=== PATIENT | female | born 1985 | race Caucasian/White ===

== ENCOUNTER → 2023-01-26 10:57 | Outpatient (BNVA) | payer MEDICAID, SELFPAY | PROVIDERS: Family Provider Nurse Practitioner Family; PCP Nurse Practitioner Family; Visit Provider Nurse Practitioner Family | DX: R73.9 Hyperglycemia, unspecified (principal); F43.10 Post-traumatic stress disorder, unspecified; G47.00 Insomnia, unspecified; R63.8 Other symptoms and signs concerning food and fluid intake | CPT/HCPCS: 80053; 83036; 85025 ==

== ENCOUNTER 2023-02-15 12:16 | Emergency (ER) | payer MEDICAID, SELFPAY ==
--- NOTE | 2023-02-15 12:40 | ECG_ITS ---
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 Measurements Intervals [place] Rate: 96 P: 76 [place]: 144 QRS: 75 QRSD: 102 T: 24 QT: 326 QTc: 413 Interpretive Statements SINUS RHYTHM POSSIBLE LEFT ATRIAL ENLARGEMENT [-0.1mV P-WAVE IN V1/V2] NONSPECIFIC T-WAVE ABNORMALITY Compared to ECG 02/21/2018 14:09:48 T-wave abnormality now present Sinus arrhythmia no longer present Electronically Signed On 02-15-2023 20:26:37 CDT by Armand Ariza M.D. [id number]
[2023-02-15 12:42] VITALS: BP 105/70; PULSE 93; RESP 16; TEMP 36.5; O2SAT 96; BMI 25.4
--- NOTE | 2023-02-15 13:22 | XRR_ITS ---
PROCEDURE INFORMATION: Exam: XR Chest Exam date and time: 02/15/2023 1:26 PM Age: 37 years old Clinical indication: Cough and dyspnea; Additional info: Dyspnea/cough TECHNIQUE: Imaging protocol: Radiologic exam of the chest. Views: 1 view. COMPARISON: DX XR chest 1V portable [id number] 02/13/2023 7:00 PM FINDINGS: Lungs: Unremarkable. No consolidation. Pleural spaces: Unremarkable. No pleural effusion. No pneumothorax. Heart/Mediastinum: Unremarkable. No cardiomegaly. Bones/joints: Unremarkable. XR/XR chest 1V portable [id number] IMPRESSION: No acute findings.
--- NOTE | 2023-02-15 13:28 | ED_ITS ---
HPI - Arrhythmia/Palpitations General: Chief Complaint: Arrhythmia/Palpitations Stated Complaint: irregular heartbeat, sob Time Seen by Provider: 02/15/23 13:22 Source: patient Mode of arrival: ambulatory History of Present Illness: 37-year-old female presents emergency room with complaints of what she calls pausing in her heart rhythm. She has previously had a cardiac ablation for SVT several years ago. She noted any problems since then she was on phentermine and still on her medicine list below she stated she stopped taking it. She states that time she will get runs of the sensation of skipped heartbeats. Is not been sustained while she was in the emergency room. No fever sweats chills no chest pain or shortness of breath at this time. She states at times when she gets her runs of irregular heartbeat that she will feel short of breath and feels some chest discomfort. She was seen at 2 other local ERs with no significant findings ([facility] in [place]) complaint: skipped beats and palpitations Onset (ago): week(s) Duration: intermittent Severity: mild Arrhythmia history: SVT and history of ablation Associated symptoms: Reports anxiety, nausea, sense of impending doom and short of breath; Deny cough, diaphoresis, muscle cramps, paresthesias, pre-syncope, syncope or vomiting Review of Systems Const: Denies: fever(s), chills or diaphoresis ENMT: Denies: throat pain, ear or mastoid pain, nasal discharge or nasal congestion Card: Reports: chest pain, palpitations and irregular heart rhythm; Denies: edema, swelling of feet/ankles, syncope or pre-syncope Resp: Denies: dyspnea, productive cough or non-productive cough GI: Reports: nausea; Denies: abdominal pain or vomiting : Denies: flank pain, difficulty voiding, dysuria, urinary frequency or urinary urgency Musc: Denies: muscle cramps Skin/Breast: Denies: rash or pruritus Psych: Reports: anxiety PFSH ED PFSH: Medical History (Updated 02/15/23 @ 14:49 by Bryan Correa DO) History of paroxysmal supraventricular tachycardia PTSD (post-traumatic stress disorder) Surgical History (Updated 02/15/23 @ 13:32 by Bryan Correa DO) History of cardiac radiofrequency ablation Physical Exam Const: GENERAL APPEARANCE: cooperative and comfortable ORIENTATION/CONSCIOUSNESS: Yes awake, Yes oriented to person, Yes oriented to place and Yes oriented to time HENMT: COMMON NORMALS: normocephalic, atraumatic and hearing grossly normal bilaterally HEAD & SCALP: normocephalic and atraumatic Resp: COMMON NORMALS: normal respiratory effort, No retractions, No use of accessory muscles and clear to auscultation bilaterally AUSCULTATION: clear to auscultation bilaterally Cardio: COMMON NORMALS: regular rate, regular rhythm and No murmurs present (Cardio) RATE: regular rate RHYTHM: regular rhythm GI: COMMON NORMALS: Soft to palpation and No hepatosplenomegaly present AUSCULTATION: Yes normoactive bowel sounds PALPATION: Yes Soft to palpation, No Tenderness to palpation present (GI), No Guarding due to palpation present (GI) and Yes No hepatosplenomegaly present Extremity: COMMON NORMALS: normal to inspection, capillary refill normal, no clubbing, cyanosis or edema, no calf tenderness and no pedal edema Neuro: SENSORIUM/ORIENTATION: Yes oriented to person, Yes oriented to place an d Yes oriented to time Skin: COMMON NORMALS: no rashes or lesions noted GENERAL SKIN EXAM: no rashes or lesions noted Course Vital Signs: Vital signs: Vital Signs Temperature 97.7 F 02/15/23 12:42 Pulse Rate 84 02/15/23 15:37 Respiratory Rate 16 02/15/23 15:37 Blood Pressure 103/75 02/15/23 15:37 Pulse Oximetry 99 02/15/23 15:37 Oxygen Delivery Me thod Room Air 02/15/23 13:40 MDM - Arrhythmia/Palpitations Medical Decision Making While I was at the bedside during history and exam patient reported she felt the pauses. What she is experiencing on the monitor is PVCs with compensatory pause. They are intermittent did not appear sequential. During the course of the visit patient did have a few episodes where she had bigeminy that would last for 5-6 beats her heart rate on the monitor would go to 40 and then rebound back into the 80s. We tried to reproduce with standing at the bedside and on unable to. Reviewed with the patient that she is having PVCs these are generally thought to be benign would not recommend treatment of these at this time. There is no evidence of SVT at this time. We will discharge her home with a 48-hour Holter monitor and follow-up with cardiology. She has phentermine on her medication list states she has not been taking recently advised her to continue to stay off of this medication for now. Avoid stress excessive tiredness caffeine alcohol and nicotine as well as any stimulating energy drinks. Return if has any change in symptoms. Medical Records I reviewed the patient's medical records. Lab Data I reviewed the patient's lab results. 02/15/23 13:33 02/15/23 13:33 Radiology Impressions Chest X-Ray 02/15/23 13:22 IMPRESSION: No acute findings. Laboratory Results WBC 6.0 10^3/uL (4.0-10.0) 02/15/23 13:33 RBC 4.28 10^6/uL (4.1-5.3) 02/15/23 13:33 Hgb 13.5 g/dL (11.5-15.3) 02/15/23 13:33 Hct 40.6 % (37.0-47.0) 02/15/23 13:33 MCV 94.9 fl (81-99) 02/15/23 13:33 MCH 31.5 pg (28.0-34.0) 02/15/23 13:33 MCHC 33.3 g/dL (30.0-36.0) 02/15/23 13:33 RDW 11.8 % (12.1-15.1) L 02/15/23 13:33 Plt Count 234 10^3/cmm (130-400) 02/15/23 13:33 MPV 9.3 fL (7.4-10.4) 02/15/23 13:33 Neut % (Auto) 64.5 % 02/15/23 13:33 Lymph % (Auto) 22.2 % 02/15/23 13:33 [place] % (Auto) 9.9 % 02/15/23 13:33 Eos % (Auto) 2.2 % 02/15/23 13:33 Baso % (Auto) 1.0 % 02/15/23 13:33 Neut # (Auto) 3.90 10^3/uL (1.8-7.7) 02/15/23 13:33 Lymph # (Auto) 1.3 10^3/uL (0.8-4.8) 02/15/23 13:33 [place] # (Auto) 0.6 10^3/uL (0.2-0.9) 02/15/23 13:33 Eos # (Auto) 0.1 10^3/uL (0.0-0.8) 02/15/23 13:33 Baso # (Auto) 0.1 10^3/uL (0.0-0.1) 02/15/23 13:33 Nucleated RBC % (auto) 0 % 02/15/23 13:33 Nucleated RBCs # 0.0 /100WBC 02/15/23 13:33 Sodium 139 mmol/L (136-145) 02/15/23 13:33 Potassium 4.3 mmol/L (3.5-5.1) 02/15/23 13:33 Chloride 106 mmol/L (98-107) 02/15/23 13:33 Carbon Dioxide 22 mmol/L (22-29) 02/15/23 13:33 Anion Gap 15.3 (5-19) 02/15/23 13:33 BUN 13 mg/dL (6-20) 02/15/23 13:33 Creatinine 1.0 mg/dL (0.5-0.9) H 02/15/23 13:33 GFR Calculation 62.1 mL/min (90-130) L 02/15/23 13:33 Glucose 86 mg/dL (65-115) 02/15/23 13:33 Calculated Osmolality 287 mOsm/kg (285-295) 02/15/23 13:33 Calcium 9.2 mg/dL (8.5-10.5) 02/15/23 13:33 Total Bilirubin 0.7 mg/dL (0.15-1.2) 02/15/23 13:33 AST 16 U/L (0-32) 02/15/23 13:33 ALT 13 U/L (0-33) 02/15/23 13:33 Alkaline Phosphatase 64 U/L (35-105) 02/15/23 13:33 Total Protein 6.9 g/dL (6.6-8.7) 02/15/23 13:33 Albumin 4.3 g/dL (3.5-5.2) 02/15/23 13:33 Globulin 2.6 g/dL (1.3-4.6) 02/15/23 13:33 TSH 1.42 uIU/mL (0.27-4.20) 02/15/23 13:33 Discharge Plan Discharge Patient Disposition: Home Clinical Impression: Palpitations Condition: Stable Prescriptions: No Action multivitamin Tablet 1 tab PO QAM bupropion HCl 150 mg tablet sustained-release 12 hr 150 mg PO BEDTIME trazodone 50 mg tablet 50 mg PO BEDTIME Rx Instructions: take 30 minutes prior to sleep phentermine 37.5 mg capsule 18.75 - 37.5 mg PO DAILY Rx Instructions: (pt states stop taking 02/13/23) must take 30 minutes before breakfast Discharge Orders: Discharge ED (Routine); Ordered 02/15/23 Ordered By: Bryan Correa Referrals: Abran Zheng FNP [Primary Care Provider] - Discharge Diet: Usual diet Discharge Activity: Resume usual activity Patient Instructions: Opioid Safety, Pain Management Activity Restrictions/Additional Instructions: You were seen today for palpitations. Your monitor strip showed PVCs with what is called a compensatory pause as the heart muscle resets itself before beating normally again. These are generally considered very benign. I would recommend that you do not take the phentermine. Avoid alcohol and nicotine highly caffeinated products and energy drinks avoid dehydration and make sure you maintain enough sleep as all of these things can trigger more PVCs. player manager will make arrangements for you to have a 48-hour Holter monitor and follow-up with cardiology. Coding Level of Care Code ED Rice Drier Operator for Joe Rubio
[2023-02-15 13:40] VITALS: BP 112/77; PULSE 76; RESP 18; O2SAT 100
[2023-02-15 13:44] LABS: Basophils # 0.1 10^3/uL (0.0-0.1); Eosinophils # 0.1 10^3/uL (0.0-0.8); Eosinophils % 2.2 %; Hematocrit 40.6 % (37.0-47.0); Hemoglobin 13.5 g/dL (11.5-15.3); Lymphocytes # 1.3 10^3/uL (0.8-4.8); Lymphocytes % 22.2 %; Mean Corpuscular HGB Conc 33.3 g/dL (30.0-36.0); Mean Corpuscular Hemoglobin 31.5 pg (28.0-34.0); Mean Corpuscular Volume 94.9 fl (81-99); Mean Platelet Volume 9.3 fL (7.4-10.4); Monocytes # 0.6 10^3/uL (0.2-0.9); Monocytes % 9.9 %; Neutrophils % 64.5 %; Nucleated Red Blood Cells % 0 %; Platelet Count 234 10^3/cmm (130-400); Red Blood Count 4.28 10^6/uL (4.1-5.3); Red Cell Distribution Width 11.8 % (12.1-15.1)
--- NOTE | 2023-02-15 13:50 | PC.PHAR ---
PT STATES SHE TAKES CARE OF HER OWN MEDICATIONS-PT STATES SHE STOP TAKING PHENTERMINE 18.75MG TO 37.5MG TABS ON Tuesday02/14/23 EXT SHOWS FILLED 01/26/23 30D/S-PT STATES SHE IS TAKING BUPROPION SR 150MG AT BEDTIME RX FILLED 02/01/23 60D/S 150MG DAILY FOR 3 DAYS THEN INCREASE TO 150MG BID PT STATES THE DR IS GOING TO DC THIS MEDICATION AND HAS HER ONLY TAKING 150MG HS-NOTES ARE MADE IN THE PHARMACY COMMENTS
[2023-02-15 14:01] LABS: Albumin Level 4.3 g/dL (3.5-5.2); Alkaline Phosphatase 64 U/L (35-105); Anion Gap 15.3 (5-19); Aspartate Amino Transferase 16 U/L (0-32); Blood Urea Nitrogen 13 mg/dL (6-20); Calcium 9.2 mg/dL (8.5-10.5); Carbon Dioxide 22 mmol/L (22-29); Chloride 106 mmol/L (98-107); Globulin 2.6 g/dL (1.3-4.6); Glomerular Filtration Rate 62.1 mL/min (90-130); Glucose 86 mg/dL (65-115); Osmolality Calculated 287 mOsm/kg (285-295); Potassium 4.3 mmol/L (3.5-5.1); Sodium 139 mmol/L (136-145); Total Bilirubin 0.7 mg/dL (0.15-1.2); Total Protein 6.9 g/dL (6.6-8.7)
[2023-02-15 14:30] LABS: Alanine Aminotransferase 13 U/L (0-33); Thyroid Stimulating Hormone 1.42 uIU/mL (0.27-4.20)
[2023-02-15 14:38] VITALS: BP 107/75; PULSE 77; O2SAT 100
[2023-02-15 15:37] VITALS: BP 103/75; PULSE 84; RESP 16; O2SAT 99
--- NOTE | 2023-02-16 09:00 | DCPLANNER ---
Addendum entered by Vivien Madden 03/18/23 11:08: Patient did attend appointment scheduled with heart care Addendum entered by Vivien Madden 03/03/23 10:30: Appointment for 48 hour halter monitor was cancelled Addendum entered by Vivien Madden 02/23/23 09:17: Patient has a follow up appointment scheduled for Tuesday, March 02, 2023 at 11:30 at [facility] for a 48 hour halter monitor. Patient has a follow up appointment scheduled for Thursday, March 09, 2023 at 11:[address] Resendez at [facility]. Original Note: Case steven had message to schedule a follow up appointment for patient with cardiology. executive sales manager sent patients information to the front office staff a heart care. Patients information will be printed and reviewed. clinic will call patient with appointment information. executive sales manager also had message to schedule an outpatient halter monitor. executive sales manager faxed signed order to heart care, who will call patient with appointment information.
== END 2023-02-15 15:38 | disposition home or self-care (01) ==
PROVIDERS: Emergency Provider Family Medicine; Family Provider Nurse Practitioner Family; PCP Nurse Practitioner Family
DX: R00.2 Palpitations (principal)
CPT/HCPCS: 71045; 80053; 84443; 85025; 93005; 99285

== ENCOUNTER → 2023-03-14 11:51 | Outpatient (BNVA) | payer MEDICAID, SELFPAY | PROVIDERS: Family Provider Nurse Practitioner Family; PCP Nurse Practitioner Family; Visit Provider Internal Medicine Cardiovascular Disease | DX: R00.2 Palpitations (principal) | CPT/HCPCS: 93005 ==

== ENCOUNTER 2023-03-29 13:19 | Outpatient (CLI) | payer MEDICAID, SELFPAY ==
--- NOTE | 2023-03-29 13:30 | USCV_ITS ---
Veronica Perkins Age: 37 Gender: F : 1985 Exam Date: 03/29/2023 13:52 Ordering Phys: Norma Resendez MD ([email or web address]) Technologist: CT Exam Location: [facility] [place] Indication: Palpitations, Frequent PVC's BP: 130 / 86 HR: 77 Rhythm: Sinus Technical Quality: Adequate MEASUREMENTS (Male / Female) Normal Values 2D ECHO LV Chamber Size 4.6 cm RV Chamber Size 2.8 cm LVOT Diameter 2.1 cm LV Ejection Fraction MOD 2C 48.9 % LV Ejection Fraction 2C AL 49.6 % LA Diameter 2.5 cm LA Width 2.8 cm LA Height 3.6 cm RA Width 3.0 cm RA Height 3.0 cm Aorta at Sinotubular Diameter 2.4 cm IVC Diameter 1.2 cm M-MODE Aortic Annulus Diameter 2.6 cm LA Ao Ratio MM 1.1 MV E Point Septal Separation 0.7 cm DOPPLER AV Peak Velocity 134.0 cm/s LVOT Peak Velocity 105.0 cm/s AV Area Cont Eq vti 3.2 cm squared AV Area Cont Eq pk 2.6 cm squared MV Peak Velocity 71.0 cm/s MV Area PHT 3.1 cm squared Mitral E to A Ratio 1.1 MV E' Velocity 39.0 cm/s Mitral E to MV E' Ratio 5.6 Mitral E to LV E' Lateral Ratio 6.3 Mitral E to LV E' Septal Ratio 5.0 TR Peak Velocity 99.0 cm/s TR Peak Gradient 3.9 mmHg TV Peak E Velocity 88.0 cm/s Right Atrial Pressure 3.0 mmHg Pulmonary Artery Systolic Pressu 6.9 mmHg PV Peak Velocity 97.0 cm/s FINDINGS Left Ventricle Normal left ventricular size, systolic function and wall thickness, with no regional wall motion abnormalities. Left ventricular ejection fraction is estimated at 70-75 %. Normal diastolic function. Right Ventricle Normal right ventricular size and systolic function. RVSP could not be calculated due to incomplete tricuspid regurgitation velocity profile. Right Atrium Normal right atrial size. Left Atrium Normal left atrial size. Mitral Valve Structurally normal mitral valve. No mitral valve stenosis. Trace mitral valve regurgitation. Aortic Valve Structurally normal trileaflet aortic valve. No aortic valve stenosis. No aortic valve regurgitation. Tricuspid Valve Structurally normal tricuspid valve. No tricuspid valve stenosis. Trace tricuspid valve regurgitation. Pulmonic Valve Structurally normal pulmonic valve. No pulmonary valve stenosis. Trace pulmonary valve regurgitation. Pericardium No pericardial effusion. Aorta Normal size aortic root and proximal ascending aorta. IVC Normal IVC dimension with >50% respiratory change of the inferior vena cava. CONCLUSIONS 1. Normal left ventricular size, systolic function and wall thickness, with no regional wall motion abnormalities. Left ventricular ejection fraction is estimated at 70-75 %. Normal diastolic function. 2. No significant valvular abnormality. 3. No prior similar studies to compare. Norma Resendez MD (Electronically Signed) Final Date: 31 March 2023 13:02 S
== END 2023-03-29 13:20 | disposition home or self-care (01) ==
LOC: RAD 13:24
PROVIDERS: PCP Nurse Practitioner Family; Visit Provider Internal Medicine Cardiovascular Disease
DX: R06.02 Shortness of breath (principal); R55 Syncope and collapse; Z98.890 Other specified postprocedural states
CPT/HCPCS: 93306

== ENCOUNTER 2023-10-10 10:22 | Emergency (ER) | payer SELFPAY ==
--- NOTE | 2023-10-10 10:25 | XRR_ITS ---
PROCEDURE INFORMATION: Exam: XR Chest Exam date and time: 10/10/2023 10:43 AM Age: 37 years old Clinical indication: Pain; Chest pressure; Additional info: Chest pain TECHNIQUE: Imaging protocol: Radiologic exam of the chest. Views: 1 view. COMPARISON: CR XR chest 1V portable [id number] 02/15/2023 1:26 PM FINDINGS: Lungs: Unremarkable. No consolidation. Pleural spaces: Unremarkable. No pleural effusion. No pneumothorax. Heart/Mediastinum: Unremarkable. No cardiomegaly. Bones/joints: Unremarkable. XR/XR chest 1V portable [id number] IMPRESSION: No acute findings.
--- NOTE | 2023-10-10 10:26 | ECG_ITS ---
[facility] Test Date: 2023-10-10 Pat Name: Veronica Perkins Department: Room: Gender: Female [employer]er: : 1985 Requested By: Yazmin Armendariz Order Number: [id number] [place] MD: Jose Antonio Reyes M.D. Measurements Intervals [place] Rate: 66 P: 64 [place]: 154 QRS: 63 QRSD: 84 T: 48 QT: 380 QTc: 400 Interpretive Statements SINUS RHYTHM POSSIBLE LEFT ATRIAL ENLARGEMENT [-0.1mV P-WAVE IN V1/V2] LOW QRS VOLTAGE IN PRECORDIAL LEADS [QRS DEFLECTION < 1.0 mV IN CHEST LEADS] NONSPECIFIC T-WAVE ABNORMALITY Compared to ECG 02/15/2023 12:40:59 Low QRS voltage now present T-wave abnormality still present Electronically Signed On 10-10-2023 11:25:32 CDT by Jose Antonio Reyes M.D. [id number]
--- NOTE | 2023-10-10 10:26 | W.ED.CHESTPA ---
Documented by User: TE Kraus 10/10/23 13:23 HPI - Chest Pain General: Chief Complaint: Chest Pain Stated Complaint: CHEST PAIN Time Seen by Provider: 10/10/23 10:25 Source: patient and EMS Mode of arrival: EMS Limitations: no limitations History of Present Illness: Patient is a 37 year old female who presents to ED today via EMS for chest pain and palpitations. Patient states over the past year or so she has been having cardiac pauses . Patient tells me at times she feels like the pauses are happening 100 times in a row . Patient tells me she has underwent Holter monitoring and was also on a monitor for close to a month. She tells me that everybody seems to be focusing on her not having SVT . She reportedly has a history of this 18 years ago and underwent cardiac ablation for this. Patient has been started on a beta-benigno for PVCs but does not feel like this is helping much. She states when her heart pauses she feels nauseous and feels like she needs to vomit also feels like she is going to pass out and feels tired. MD complaint: other (palpitations ) Pertinent past history: other (SVT with cardio ablation) Onset (ago): year(s) Timing of current episode: episodic Prior episodes: Yes Pain radiation: none Severity: moderate Relieving factors: nothing Exacerbating factors: nothing Associated symptoms: Reports palpitations; Deny abdominal pain, dyspnea, fever(s), nausea, syncope or vomiting Treatment prior to arrival: none Risk Factors: Coronary artery disease risk factors: none Thoracic aortic dissection risk factors: none Related Data: On Oral Contraceptives: No Review of Systems Const: Denies: fever(s) or chills Eyes: Denies: change in vision or blurry vision Card: Reports: chest pain and palpitations; Denies: irregular heart rhythm, edema, swelling of feet/ankles, lightheadedness, syncope, pre-syncope, dyspnea on exertion, orthopnea, leg pain with exertion or acrocyanosis Resp: Denies: dyspnea, productive cough or pain on inspiration GI: Denies: abdominal pain, nausea, vomiting, heartburn or diarrhea : Denies: dysuria Musc: Denies: neck pain, back pain, extremity pain, extremity swelling or joint pain Skin/Breast: Denies: rash Neuro: Denies: headache(s), numbness in extremities, weakness in extremities, sensory changes or dizziness PFS ED PFSH: Medical History History of paroxysmal supraventricular tachycardia PTSD (post-traumatic stress disorder) Surgical History S/P hysterectomy H/O hand surgery S/P breast augmentation History of cardiac radiofrequency ablation Social History Smoking and tobacco/nicotine status: current some day tobacco/nicotine user Alcohol intake: current Alcohol intake frequency: few times a month Substance/Drug Use: never Physical Exam Const: COMMON NORMALS: no acute distress, average body habitus, patient oriented x3, no limitations, healthy appearing, alert and well nourished ORIENTATION/CONSCIOUSNESS: Yes awake, Yes oriented to person, Yes oriented to place and Yes oriented to time HENMT: COMMON NORMALS: normocephalic and atraumatic HEAD & SCALP: normal to inspection, normocephalic and atraumatic Neck/C-Spine: COMMON NORMALS: full ROM, no lymphadenopathy, supple and no meningeal signs Chest: COMMONS NORMALS: normal inspection of the chest Resp: COMMON NORMALS: normal respiratory effort and clear to auscultation bilaterally AUSCULTATION: clear to auscultation bilaterally Cardio: COMMON NORMALS: regular rate and regular rhythm RATE: regular rate RHYTHM: regular rhythm GI: COMMON NORMALS: Normal to inspection, nondistended, normoactive bowel sounds present, Soft to palpation, non-tender, No hepatosplenomegaly present and no masses PALPATION: Yes Soft to palpation and Yes No hepatosplenomegaly present : COMMON NORMALS: Yes no CVA tenderness BLADDER/KIDNEY EXAM: Yes no CVA tenderness Back/Pelvis: COMMON NORMALS: no CVA tenderness and thoracic and lumbar spine normal to inspection Extremity: COMMON NORMALS: normal to inspection GENERAL: Yes normal exam except as noted Neuro: LIONEL COMA SCALE: document GCS findings [place] coma scale eye opening: Spontaneous [place] coma scale verbal response: Orientated [place] coma scale motor response: Obey commands Lionel coma scale total score: 15 COMMON NORMALS: patient oriented x3 SENSORIUM/ORIENTATION: Yes alert, Yes oriented to person, Yes oriented to place and Yes oriented to time MENINGEAL SIGNS: Yes no meningeal signs Skin: COMMON NORMALS: no rashes or lesions noted GENERAL SKIN EXAM: no rashes or lesions noted Course Vital Signs: Vital signs: Vital Signs Temperature 98.2 F 10/10/23 10:29 Pulse Rate 98 10/10/23 12:50 Respiratory Rate 14 10/10/23 10:29 Blood Pressure 110/68 10/10/23 10:29 Pulse Oximetry 96 10/10/23 12:50 Oxygen Delivery Me thod Room Air 10/10/23 12:50 MDM - Chest Pain Medical Decision Making Patient is a 37-year-old female here for palpitations/feeling like her heart is pausing. She was here approximately 3 hours COVID visualized one PVC on the monitor. Holter monitor from [facility] was reviewed. Test date 09/2022. Impression was sinus rhythm with premature ventricular contractions noted accounting for 2.1% of total beats. 2-week monitoring following this showed 400 triggered events the vast majority of these are related to PVCs. Patient has had a normal echocardiogram in March 2023. Patient feels like symptoms are worsening. I did discuss with Dr. Ariza who stated we can get patient set up for repeat Holter monitoring and follow-up with cardiology following this. Return to ED precautions given. Patient reviewed with Dr. Correa who agrees with plan. Medical Records I reviewed the patient's medical records. Lab Data I reviewed the patient's lab results. 10/10/23 09:52 10/10/23 09:52 Radiology Impressions Chest X-Ray 10/10/23 10:25 IMPRESSION: No acute findings. Laboratory Results WBC 5.66 10^3/uL (3.29-11.43) 10/10/23 09:52 RBC 3.80 10^6/uL (3.85-5.65) L 10/10/23 09:52 Hgb 12.20 g/dL (11.27-16.99) 10/10/23 09:52 Hct 35.6 % (36-47) L 10/10/23 09:52 MCV 93.7 fl (85-98) 10/10/23 09:52 MCH 32.1 pg (27-33) 10/10/23 09:52 MCHC 34.3 g/dL (30-55) 10/10/23 09:52 RDW 12.3 % (12.1-15.1) 10/10/23 09:52 Plt Count 215 10^3/cmm (157-399) 10/10/23 09:52 MPV 9.9 fL (7.4-10.4) 10/10/23 09:52 Neut % (Auto) 77.2 % 10/10/23 09:52 Lymph % (Auto) 6.7 % 10/10/23 09:52 [place] % (Auto) 12.7 % 10/10/23 09:52 Eos % (Auto) 2.1 % 10/10/23 09:52 Baso % (Auto) 0.9 % 10/10/23 09:52 Neut # (Auto) 4.37 10^3/uL (1.8-7.7) 10/10/23 09:52 Lymph # (Auto) 0.4 10^3/uL (0.8-4.8) L 10/10/23 09:52 [place] # (Auto) 0.7 10^3/uL (0.2-0.9) 10/10/23 09:52 Eos # (Auto) 0.1 10^3/uL (0.0-0.8) 10/10/23 09:52 Baso # (Auto) 0.1 10^3/uL (0.0-0.1) 10/10/23 09:52 Nucleated RBC % (auto) 0 % 10/10/23 09:52 Nucleated RBCs # 0.0 /100WBC 10/10/23 09:52 Sodium 136 mmol/L (136-145) 10/10/23 09:52 Potassium 4.4 mmol/L (3.5-5.1) 10/10/23 09:52 Chloride 104 mmol/L (98-107) 10/10/23 09:52 Carbon Dioxide 24 mmol/L (22-29) 10/10/23 09:52 Anion Gap 12.4 (5-19) 10/10/23 09:52 BUN 17 mg/dL (6-20) 10/10/23 09:52 Creatinine 0.8 mg/dL (0.5-0.9) 10/10/23 09:52 GFR Calculation 80.3 mL/min (90-130) L 10/10/23 09:52 Glucose 93 mg/dL (65-115) 10/10/23 09:52 Calculated Osmolality 283 mOsm/kg (285-295) L 10/10/23 09:52 Calcium 9.1 mg/dL (8.5-10.5) 10/10/23 09:52 Total Bilirubin 0.8 mg/dL (0.15-1.2) 10/10/23 09:52 AST 17 U/L (0-32) 10/10/23 09:52 ALT 14 U/L (0-33) 10/10/23 09:52 Alkaline Phosphatase 51 U/L (35-105) 10/10/23 09:52 Troponin T Baseline < 6 ng/L (0-10) 10/10/23 09:52 Total Protein 6.5 g/dL (6.6-8.7) L 10/10/23 09:52 Albumin 4.3 g/dL (3.5-5.2) 10/10/23 09:52 Globulin 2.2 g/dL (1.3-4.6) 10/10/23 09:52 HCG, Qual Negative (Negative) 10/10/23 09:52 All radiology interpretation(s) finalized by discharge Discharge Plan Discharge Patient Disposition: Home Clinical Impression: Symptomatic PVCs Condition: Stable Prescriptions: No Action THC Gummy 1 tab PO BEDTIME bupropion HCl 150 mg tablet sustained-release 12 hr 150 mg PO QAM multivitamin Tablet 1 tab PO QAM aspirin 325 mg Tablet 325 mg PO .ONE TIME DOSE potassium gluconate 595 mg (99 mg) Tablet 595 mg PO DAILY magnesium oxide 400 mg magnesium Tablet 400 mg PO DAILY metoprolol succinate 25 mg tablet extended release 24 hr 25 mg PO QAM Discharge Orders: Discharge ED (Routine); Ordered 10/10/23 Ordered By: Yazmin Armendariz Referrals: Abran Zheng, [facility] [facility] [Primary Care Provider] - Activity Restrictions/Additional Instructions: As we discussed I am writing an outpatient order to get you set up for another Holter monitor for further evaluation of your symptoms. We will have you follow-up with cardiology following this for further evaluation/treatment of your symptoms. Coding Level of Care Code ED [employer] Technician for Chg Fwd Documented by User: Bryan Correa DO 10/10/23 15:57 HPI - Chest Pain General: Chief Complaint: Chest Pain Stated Complaint: CHEST PAIN Time Seen by Provider: 10/10/23 10:25 PFSH ED PFSH: Medical History History of paroxysmal supraventricular tachycardia PTSD (post-traumatic stress disorder) Surgical History S/P hysterectomy H/O hand surgery S/P breast augmentation History of cardiac radiofrequency ablation Social History Smoking and tobacco/nicotine status: current some day tobacco/nicotine user Alcohol intake: current Alcohol intake frequency: few times a month Substance/Drug Use: never Physical Exam Neuro: LIONEL COMA SCALE: document GCS findings Lion[place] coma scale total score: 15 Course Vital Signs: Vital signs: Vital Signs Temperature 98.2 F 10/10/23 10:29 Pulse Rate 98 10/10/23 12:50 Respiratory Rate 14 10/10/23 10:29 Blood Pressure 110/68 10/10/23 10:29 Pulse Oximetry 96 10/10/23 12:50 Oxygen Delivery Me thod Room Air 10/10/23 12:50 MDM - Chest Pain Medical Decision Making Patient is a 37-year-old female here for palpitations/feeling like her heart is pausing. She was here approximately 3 hours COVID visualized one PVC on the monitor. Holter monitor from [facility] was reviewed. Test date 09/2022. Impression was sinus rhythm with premature ventricular contractions noted accounting for 2.1% of total beats. 2-week monitoring following this showed 400 triggered events the vast majority of these are related to PVCs. Patient has had a normal echocardiogram in March 2023. Patient feels like symptoms are worsening. I did discuss with Dr. Ariza who stated we can get patient set up for repeat Holter monitoring and follow-up with cardiology following this. Return to ED precautions given. Patient reviewed with Dr. Correa who agrees with plan. Chart reviewed and patient discussed with midlevel. Agree with assessment and plan. Lab Data 10/10/23 09:52 10/10/23 09:52 Radiology Impressions Chest X-Ray 10/10/23 10:25 IMPRESSION: No acute findings. Laboratory Results WBC 5.66 10^3/uL (3.29-11.43) 10/10/23 09:52 RBC 3.80 10^6/uL (3.85-5.65) L 10/10/23 09:52 Hgb 12.20 g/dL (11.27-16.99) 10/10/23 09:52 Hct 35.6 % (36-47) L 10/10/23 09:52 MCV 93.7 fl (85-98) 10/10/23 09:52 MCH 32.1 pg (27-33) 10/10/23 09:52 MCHC 34.3 g/dL (30-55) 10/10/23 09:52 RDW 12.3 % (12.1-15.1) 10/10/23 09:52 Plt Count 215 10^3/cmm (157-399) 10/10/23 09:52 MPV 9.9 fL (7.4-10.4) 10/10/23 09:52 Neut % (Auto) 77.2 % 10/10/23 09:52 Lymph % (Auto) 6.7 % 10/10/23 09:52 [place] % (Auto) 12.7 % 10/10/23 09:52 Eos % (Auto) 2.1 % 10/10/23 09:52 Baso % (Auto) 0.9 % 10/10/23 09:52 Neut # (Auto) 4.37 10^3/uL (1.8-7.7) 10/10/23 09:52 Lymph # (Auto) 0.4 10^3/uL (0.8-4.8) L 10/10/23 09:52 [place] # (Auto) 0.7 10^3/uL (0.2-0.9) 10/10/23 09:52 Eos # (Auto) 0.1 10^3/uL (0.0-0.8) 10/10/23 09:52 Baso # (Auto) 0.1 10^3/uL (0.0-0.1) 10/10/23 09:52 Nucleated RBC % (auto) 0 % 10/10/23 09:52 Nucleated RBCs # 0.0 /100WBC 10/10/23 09:52 Sodium 136 mmol/L (136-145) 10/10/23 09:52 Potassium 4.4 mmol/L (3.5-5.1) 10/10/23 09:52 Chloride 104 mmol/L (98-107) 10/10/23 09:52 Carbon Dioxide 24 mmol/L (22-29) 10/10/23 09:52 Anion Gap 12.4 (5-19) 10/10/23 09:52 BUN 17 mg/dL (6-20) 10/10/23 09:52 Creatinine 0.8 mg/dL (0.5-0.9) 10/10/23 09:52 GFR Calculation 80.3 mL/min (90-130) L 10/10/23 09:52 Glucose 93 mg/dL (65-115) 10/10/23 09:52 Calculated Osmolality 283 mOsm/kg (285-295) L 10/10/23 09:52 Calcium 9.1 mg/dL (8.5-10.5) 10/10/23 09:52 Total Bilirubin 0.8 mg/dL (0.15-1.2) 10/10/23 09:52 AST 17 U/L (0-32) 10/10/23 09:52 ALT 14 U/L (0-33) 10/10/23 09:52 Alkaline Phosphatase 51 U/L (35-105) 10/10/23 09:52 Troponin T Baseline < 6 ng/L (0-10) 10/10/23 09:52 Total Protein 6.5 g/dL (6.6-8.7) L 10/10/23 09:52 Albumin 4.3 g/dL (3.5-5.2) 10/10/23 09:52 Globulin 2.2 g/dL (1.3-4.6) 10/10/23 09:52 HCG, Qual Negative (Negative) 10/10/23 09:52 Discharge Plan Discharge Patient Disposition: Home Clinical Impression: Symptomatic PVCs Condition: Stable Prescriptions: No Action THC Gummy 1 tab PO BEDTIME bupropion HCl 150 mg tablet sustained-release 12 hr 150 mg PO QAM multivitamin Tablet 1 tab PO QAM aspirin 325 mg Tablet 325 mg PO .ONE TIME DOSE potassium gluconate 595 mg (99 mg) Tablet 595 mg PO DAILY magnesium oxide 400 mg magnesium Tablet 400 mg PO DAILY metoprolol succinate 25 mg tablet extended release 24 hr 25 mg PO QAM Discharge Orders: Discharge ED (Routine); Ordered 10/10/23 Ordered By: Yazmin Armendariz Referrals: Abran Zheng FNP [Primary Care Provider] - Activity Restrictions/Additional Instructions: As we discussed I am writing an outpatient order to get you set up for another Holter monitor for further evaluation of your symptoms. We will have you follow-up with cardiology following this for further evaluation/treatment of your symptoms. Coding Level of Care Code ED [employer] Technician for Joe Rubio
[2023-10-10 10:29] VITALS: BP 110/68; PULSE 66; RESP 14; TEMP 36.8; O2SAT 100; BMI 25.7
[2023-10-10 10:36] LABS: Basophils # 0.1 10^3/uL (0.0-0.1); Basophils % 0.9 %; Eosinophils # 0.1 10^3/uL (0.0-0.8); Eosinophils % 2.1 %; Hematocrit 35.6 % (36-47); Lymphocytes # 0.4 10^3/uL (0.8-4.8); Lymphocytes % 6.7 %; Mean Corpuscular HGB Conc 34.3 g/dL (30-55); Mean Corpuscular Hemoglobin 32.1 pg (27-33); Mean Corpuscular Volume 93.7 fl (85-98); Mean Platelet Volume 9.9 fL (7.4-10.4); Monocytes # 0.7 10^3/uL (0.2-0.9); Monocytes % 12.7 %; Neutrophils # 4.37 10^3/uL (1.8-7.7); Neutrophils % 77.2 %; Nucleated Red Blood Cells % 0 %; Platelet Count 215 10^3/cmm (157-399); Red Cell Distribution Width 12.3 % (12.1-15.1); White Blood Count 5.66 10^3/uL (3.29-11.43)
[2023-10-10 10:53] LABS: HCG, Serum Qual Negative (Negative)
--- NOTE | 2023-10-10 10:58 | PC.PHAR ---
pt states she takes care of her own medications-pt states she takes bupropion sr 12h 150mg qam ext shows last filled 09/16/23 30d/s 150mg bid-pt states she was given aspirin 325mg as a one time dose today-pt states she takes alot of other vitamins but is unsure of the names of them all-
[2023-10-10 10:59] LABS: Troponin(5th) Baseline < 6 ng/L (0-10)
[2023-10-10 11:01] LABS: Alanine Aminotransferase 14 U/L (0-33); Albumin Level 4.3 g/dL (3.5-5.2); Alkaline Phosphatase 51 U/L (35-105); Anion Gap 12.4 (5-19); Aspartate Amino Transferase 17 U/L (0-32); Blood Urea Nitrogen 17 mg/dL (6-20); Calcium 9.1 mg/dL (8.5-10.5); Carbon Dioxide 24 mmol/L (22-29); Chloride 104 mmol/L (98-107); Creatinine Clr Calc Pharmacy 93.8088; Globulin 2.2 g/dL (1.3-4.6); Glomerular Filtration Rate 80.3 mL/min (90-130); Glucose 93 mg/dL (65-115); Osmolality Calculated 283 mOsm/kg (285-295); Potassium 4.4 mmol/L (3.5-5.1); Sodium 136 mmol/L (136-145); Total Bilirubin 0.8 mg/dL (0.15-1.2); Total Protein 6.5 g/dL (6.6-8.7)
[2023-10-10 12:50] VITALS: PULSE 98; O2SAT 96
--- NOTE | 2023-10-10 18:28 | DCPLANNER ---
Message sent to Cardiology and outpatient requesst sent to Centralized scheduling
== END 2023-10-10 13:01 | disposition home or self-care (01) ==
PROVIDERS: Emergency Provider Physician Assistant; PCP Nurse Practitioner Family
DX: I49.3 Ventricular premature depolarization (principal); Z72.0 Tobacco use
CPT/HCPCS: 71045; 80053; 84484; 84703; 85025; 93005; 99285

== ENCOUNTER 2023-11-06 16:00 | Emergency (ER) | payer MEDICAID, SELFPAY ==
[2023-11-06 16:13] VITALS: BP 111/72; PULSE 70; RESP 17; TEMP 36.5; O2SAT 99; BMI 25.0
--- NOTE | 2023-11-06 16:17 | ECG_ITS ---
[facility] Test Date: 2023-11-06 Pat Name: Veronica Perkins Department: Room: Gender: Female Breadman: : 1985 Requested By: Bryan Carter Order Number: [id number] [place] MD: Bryant Landaverde M.D. Measurements Intervals [place] Rate: 100 P: 63 IA: 149 QRS: 90 QRSD: 89 T: 12 QT: 355 QTc: 458 Interpretive Statements SINUS TACHYCARDIA WITH OCCASIONAL VENTRICULAR PREMATURE COMPLEXES POSSIBLE LEFT ATRIAL ENLARGEMENT [-0.1mV P-WAVE IN V1/V2] NONSPECIFIC T-WAVE ABNORMALITY ABNORMAL RHYTHM ECG Compared to ECG 10/10/2023 10:26:45 Ventricular premature complex(es) now present Sinus rhythm no longer present T-wave abnormality still present Electronically Signed On 11-07-2023 15:01:28 CDT by Bryant Landaverde M.D. [email or web address]
--- NOTE | 2023-11-06 16:30 | ED_ITS ---
HPI - Chest Pain 2 General: Chief Complaint: Chest Pain Stated Complaint: Chest pain Time Seen by Provider: 11/06/23 16:20 History of Present Illness: 37-year-old female who presents to the e mergency room with palpitations and generalized weakness. She has been having palpitations for about 3 days now she says. She says it is not a fast heart rate but actually will go slow sometimes and be irregular. She says she used to have SVT but does not have that anymore. She is complaining of chest pain. Squeezing pain in her left chest that goes into her left neck. She has some mild exertional dyspnea. No fevers. No cough. No abdominal pain. No nausea or vomiting. Review of Systems 2 Narrative: Constitutional symptoms: Negative except as documented in HPI. Skin symptoms: Negative except as documented in HPI. Eye symptoms: Negative except as documented in HPI. ENMT symptoms: Negative except as documented in HPI. Respiratory symptoms: Negative except as documented in HPI. Cardiovascular symptoms: Negative except as documented in HPI. Gastrointestinal symptoms: Negative except as documented in HPI. Genitourinary symptoms: Negative except as documented in HPI. Musculoskeletal symptoms: Negative except as documented in HPI. Neurologic symptoms: Negative except as documented in HPI. Psychiatric symptoms: Negative except as documented in HPI. Endocrine symptoms: Negative except as documented in HPI. PFSH ED 2 PFSH: Medical History History of paroxysmal supraventricular tachycardia PTSD (post-traumatic stress disorder) Surgical History S/P hysterectomy H/O hand surgery S/P breast augmentation History of cardiac radiofrequency ablation Social History Smoking and tobacco/nicotine status: current some day tobacco/nicotine user Alcohol intake: current Alcohol intake frequency: few times a month Substance/Drug Use: never Physical Exam 2 Narrative: EXAM NARRATIVE: General: Alert, no acute distress. Skin: Warm, dry. Head: Normocephalic, atraumatic. Neck: Supple, trachea midline. Eye: Extraocular movements are intact. Ears, nose, mouth and throat: mucosa moist. Cardiovascular: Regular, Normal peripheral perfusion. Respiratory: Lungs are clear to auscultation, respirations are non-labored, breath sounds are equal, Symmetrical chest wall expansion. Gastrointestinal: Soft, Nontender, Non distended, Normal bowel sounds. Musculoskeletal: Normal ROM, no deformity. Neurological: Alert and oriented, No focal neurological deficit observed. Psychiatric: Cooperative, appropriate mood & affect. Course 2 Vital Signs: Vital signs: Vital Signs Temperature 97.7 F 11/06/23 16:13 Pulse Rate 59 L 11/06/23 19:00 Respiratory Rate 19 H 11/06/23 19:00 Blood Pressure 89/51 11/06/23 19:00 Pulse Oximetry 97 11/06/23 19:00 Oxygen Delivery Me thod Room Air 11/06/23 19:00 MDM - Chest Pain Medical Decision Making Differential diagnosis for patient with chest pain includes but is not limited to and based on the above HPI, review of systems and physical exam: Pneumonia. unstable angina. angina. Acute coronary syndrome / [place]. Pulmonary embolism. Costochondritis / musculoskeletal. Pleurisy. Pericarditis. Esophageal spasm. Pancreatis. Cholecystitis. Workup: Lab work, chest X-ray and EKG ordered to evaluate, rule in and rule out above pathologies. Lab Review: Laboratory results were reviewed and interpreted by myself the emergency room physician. Lab work is unremarkable. No leukocytosis. Hemoglobin is 13.5. BUN and creatinine are 15 and 0.9. Urine is negative for infection. proBNP is negative. Initial troponin is negative. EKG: Time 1602 rate 100. Sinus tachycardia. PVCs. Nonspecific ST-T changes, normal FL & QRS intervals, This was reviewed and interpreted by myself the ER physician. Repeat EKG: Time 1834 rate 61 there has been a significant decrease in her heart rate by 40 bpm. Still with some PVCs. Normal sinus rhythm, No ST-T changes, normal FL & QRS intervals, This was reviewed and interpreted by myself the ER physician at 1840. Chest x-ray: No acute process. No infiltrate. No pneumothorax. No cardiomegaly. This was reviewed and interpreted by myself the ER physician. I reviewed the patient's medical record. Reexamination: I was called to the room nursing at said that the patient was very angry that we were not doing anything to help her here. I entered the room and she was crying. She seemed extremely angry. She said this problem has been going on nobody will do anything about it. She keeps telling me that the bottom of her heart is going bad and someone told her that and that she might need a pacemaker. I explained that could not have that done today but after listening a little bit longer I offered to try to get her admitted so maybe she could see a paper bag making machinist because she says it has been difficult to get into a primary or into a cardiology because of where she lives. She request discharge instead of admission. She is unhappy with me and thinks that I was dismissing her. Try to explain I was just trying to figure out what I can do to help within the resources I have at this hospital on Tuesday night with the problem that she is repeatedly said has been going on for over a year and nobody is ever figured out. She has no increased work of breathing. Heart rate has maintained between 60 and 100 with PVCs throughout her stay here. I also discussed at length findings. Her EKG does show PVCs. As does her tracing on the environmental monitoring technician. Her proBNP is not elevated and her heart size is normal which would indicate that she does not have congestive heart failure. S Lab Data 11/06/23 16:39 11/06/23 16:39 Radiology Impressions Chest X-Ray 11/06/23 17:07 IMPRESSION: No acute findings. Laboratory Results WBC 6.20 10^3/uL (3.29-11.43) 11/06/23 16:39 RBC 4.23 10^6/uL (3.85-5.65) 11/06/23 16:39 Hgb 13.40 g/dL (11.27-16.99) 11/06/23 16:39 Hct 38.5 % (36-47) 11/06/23 16:39 MCV 91.0 fl (85-98) 11/06/23 16:39 MCH 31.7 pg (27-33) 11/06/23 16:39 MCHC 34.8 g/dL (30-55) 11/06/23 16:39 RDW 12.1 % (12.1-15.1) 11/06/23 16:39 Plt Count 270 10^3/cmm (157-399) 11/06/23 16:39 MPV 9.5 fL (7.4-10.4) 11/06/23 16:39 Neut % (Auto) 61.2 % 11/06/23 16:39 Lymph % (Auto) 26.3 % 11/06/23 16:39 [place] % (Auto) 8.9 % 11/06/23 16:39 Eos % (Auto) 2.4 % 11/06/23 16:39 Baso % (Auto) 1.0 % 11/06/23 16:39 Neut # (Auto) 3.80 10^3/uL (1.8-7.7) 11/06/23 16:39 Lymph # (Auto) 1.6 10^3/uL (0.8-4.8) 11/06/23 16:39 [place] # (Auto) 0.6 10^3/uL (0.2-0.9) 11/06/23 16:39 Eos # (Auto) 0.2 10^3/uL (0.0-0.8) 11/06/23 16:39 Baso # (Auto) 0.1 10^3/uL (0.0-0.1) 11/06/23 16:39 Nucleated RBC % (auto) 0 % 11/06/23 16:39 Nucleated RBCs # 0.0 /100WBC 11/06/23 16:39 Sodium 138 mmol/L (136-145) 11/06/23 16:39 Potassium 4.3 mmol/L (3.5-5.1) 11/06/23 16:39 Chloride 103 mmol/L (98-107) 11/06/23 16:39 Carbon Dioxide 26 mmol/L (22-29) 11/06/23 16:39 Anion Gap 13.3 (5-19) 11/06/23 16:39 BUN 15 mg/dL (6-20) 11/06/23 16:39 Creatinine 0.9 mg/dL (0.5-0.9) 11/06/23 16:39 GFR Calculation 70.1 mL/min (90-130) L 11/06/23 16:39 Glucose 92 mg/dL (65-115) 11/06/23 16:39 Calculated Osmolality 286 mOsm/kg (285-295) 11/06/23 16:39 Calcium 9.9 mg/dL (8.5-10.5) 11/06/23 16:39 Magnesium 1.9 mg/dL (1.7-2.3) 11/06/23 16:39 Total Bilirubin 0.4 mg/dL (0.15-1.2) 11/06/23 16:39 AST 17 U/L (0-32) 11/06/23 16:39 ALT 11 U/L (0-33) 11/06/23 16:39 Alkaline Phosphatase 62 U/L (35-105) 11/06/23 16:39 Troponin T Baseline < 6 ng/L (0-10) 11/06/23 16:39 Troponin T 120 Minute 6.00 ng/L (0-10) 11/06/23 18:24 Delta Troponin T 0.38700 ABS# (0-10) 11/06/23 18:24 C-Reactive Protein 3.0 mg/L (0.0-4.9) 11/06/23 16:39 NT-Pro-B Natriuret Pep 106 pg/mL (0-125) 11/06/23 16:39 Total Protein 7.5 g/dL (6.6-8.7) 11/06/23 16:39 Albumin 4.7 g/dL (3.5-5.2) 11/06/23 16:39 Globulin 2.8 g/dL (1.3-4.6) 11/06/23 16:39 TSH 1.09 uIU/mL (0.27-4.20) 11/06/23 16:39 Urine Color Yellow (Yellow) 11/06/23 16:43 Urine Appearance Clear (CLEAR) 11/06/23 16:43 Urine pH 6 (5-7) 11/06/23 16:[address] 1.020 (1.005-1.030) 11/06/23 16:43 Urine Protein Neg (Negative) 11/06/23 16:43 Urine Glucose (UA) Norm (Normal) 11/06/23 16:43 Urine Ketones Negative (Negative) 11/06/23 16:43 Urine Blood Neg (Negative) 11/06/23 16:43 Urine Nitrate Negative (Negative) 11/06/23 16:43 Urine Bilirubin Neg (Negative) 11/06/23 16:43 Urine Urobilinogen Norm mg/dL (Negative) 11/06/23 16:43 Ur Leukocyte Esterase Negative (Negative) 04/21/24 16:43 Urine RBC None /hpf (0-2) 11/06/23 16:43 Urine WBC Rare /hpf (0-5) 11/06/23 16:43 Ur Squamous Epith Cells 0-4 /hpf (0-5) H 11/06/23 16:43 Amorphous Sediment Not Reportable 11/06/23 16:43 Urine Bacteria Trace /hpf (NONE) 11/06/23 16:43 Influenza Type A Ag negative (Negative) 11/06/23 16:42 Influenza Type B Ag negative (Negative) 11/06/23 16:42 SARS-CoV-2 Ag (Rapid) negative (Negative) 11/06/23 16:42 All radiology interpretation(s) finalized by discharge Other Data Assessment and plan: - Discharged home - Discussed plan with patient. Answered any questions. - Evaluation and treatment of this problem were appropriate in the emergency setting. Discharge Plan Discharge Patient Disposition: Home Clinical Impression: Symptomatic PVCs, Chest pain Condition: Stable Prescriptions: No Action THC Gummy 1 tab PO BEDTIME bupropion HCl 150 mg tablet sustained-release 12 hr 150 mg PO QAM multivitamin Tablet 1 tab PO QAM aspirin 325 mg Tablet 325 mg PO .ONE TIME DOSE potassium gluconate 595 mg (99 mg) Tablet 595 mg PO DAILY magnesium oxide 400 mg magnesium Tablet 400 mg PO DAILY metoprolol succinate 25 mg tablet extended release 24 hr 25 mg PO QAM Discharge Orders: Discharge ED (Routine); Ordered 11/06/23 Ordered By: Deana Gutierres Referrals: bAran Zheng FNP [Primary Care Provider] - (You have been screened and evaluated and felt safe for discharge. Health conditions do change or evolve sometimes and as such it is important that you follow up with your Primary Doctor to be re checked, 3-5 days is a general good time frame for follow up. You are always welcome to return to the ED for re assessment if your symptoms are worsening or you have new concerns) Discharge Diet: Usual diet Discharge Activity: Resume usual activity Patient Instructions: Heart Palpitations (ED), Opioid Safety, Pain Management Coding Level of Care Code ED Optical Manufacturing Technician for Joe Rubio
[2023-11-06 16:47] LABS: Basophils # 0.1 10^3/uL (0.0-0.1); Eosinophils # 0.2 10^3/uL (0.0-0.8); Eosinophils % 2.4 %; Hematocrit 38.5 % (36-47); Lymphocytes # 1.6 10^3/uL (0.8-4.8); Lymphocytes % 26.3 %; Mean Corpuscular HGB Conc 34.8 g/dL (30-55); Mean Corpuscular Hemoglobin 31.7 pg (27-33); Mean Platelet Volume 9.5 fL (7.4-10.4); Monocytes # 0.6 10^3/uL (0.2-0.9); Monocytes % 8.9 %; Neutrophils % 61.2 %; Nucleated Red Blood Cells % 0 %; Platelet Count 270 10^3/cmm (157-399); Red Blood Count 4.23 10^6/uL (3.85-5.65); Red Cell Distribution Width 12.1 % (12.1-15.1)
[2023-11-06 16:55] VITALS: BP 131/83; PULSE 68; RESP 19; O2SAT 96
[2023-11-06 17:05] LABS: Troponin(5th) Baseline < 6 ng/L (0-10)
--- NOTE | 2023-11-06 17:07 | XRR_ITS ---
PROCEDURE INFORMATION: Exam: XR Chest Exam date and time: 11/06/2023 5:19 PM Age: 37 years old Clinical indication: Angina pectoris; Patient HX: Lt chest pain radiating to lt arm TECHNIQUE: Imaging protocol: Radiologic exam of the chest. Views: 1 view. COMPARISON: CR XR chest 1V portable [id number] 10/10/2023 10:43 AM FINDINGS: Lungs: Unremarkable. No consolidation. Pleural spaces: Unremarkable. No pleural effusion. No pneumothorax. Heart/Mediastinum: Unremarkable. No cardiomegaly. Bones/joints: Unremarkable. XR/XR chest 1V portable [id number] IMPRESSION: No acute findings.
[2023-11-06 17:12] LABS: Influenza A by IFA negative (Negative); Influenza B by IFA negative (Negative); SARS Covid-2 Antigen negative (Negative)
[2023-11-06 17:15] LABS: Alanine Aminotransferase 11 U/L (0-33); Albumin Level 4.7 g/dL (3.5-5.2); Alkaline Phosphatase 62 U/L (35-105); Anion Gap 13.3 (5-19); Aspartate Amino Transferase 17 U/L (0-32); Blood Urea Nitrogen 15 mg/dL (6-20); Calcium 9.9 mg/dL (8.5-10.5); Carbon Dioxide 26 mmol/L (22-29); Chloride 103 mmol/L (98-107); Creatinine Clr Calc Pharmacy 82.1718; Globulin 2.8 g/dL (1.3-4.6); Glomerular Filtration Rate 70.1 mL/min (90-130); Glucose 92 mg/dL (65-115); Magnesium 1.9 mg/dL (1.7-2.3); NT Pro B Type Natriuretic Pept 106 pg/mL (0-125); Osmolality Calculated 286 mOsm/kg (285-295); Potassium 4.3 mmol/L (3.5-5.1); Sodium 138 mmol/L (136-145); Thyroid Stimulating Hormone 1.09 uIU/mL (0.27-4.20); Total Bilirubin 0.4 mg/dL (0.15-1.2); Total Protein 7.5 g/dL (6.6-8.7)
[2023-11-06 17:21] VITALS: BP 105/72; PULSE 68; RESP 18; O2SAT 97
[2023-11-06 17:35] LABS: Bilirubin Urine Neg (Negative); Blood Urine Neg (Negative); Glucose Urine UA Norm (Normal); Ketones Urine Negative (Negative); Leukocyte Esterase Urine Negative (Negative); Nitrate Urine Negative (Negative); Protein Urine Neg (Negative); Squamous Epithelial Cell Urine 0-4 /hpf (0-5); Urine Appearance Clear (CLEAR); Urine Color Yellow (Yellow); Urobilinogen Urine Norm (Negative); WBC Urine RARE /hpf (0-5); pH Urine 6 (5-7)
[2023-11-06 17:36] LABS: Add Urine Culture? No; Bacteria Urine TRACE /hpf
[2023-11-06 18:17] VITALS: BP 105/72; PULSE 59; RESP 16; O2SAT 98
--- NOTE | 2023-11-06 18:28 | ECG_ITS ---
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 Measurements Intervals [place] Rate: 61 P: 60 ID: [id number] QRS: 52 QRSD: 92 T: 46 QT: 405 QTc: 411 Interpretive Statements SINUS RHYTHM WITH OCCASIONAL VENTRICULAR PREMATURE COMPLEXES Compared to ECG 11/06/2023 16:02:34 Sinus tachycardia no longer present T-wave abnormality no longer present Electronically Signed On 11-07-2023 15:06:30 CDT by Bryant Landaverde M.D. [id number]
[2023-11-06 19:00] VITALS: BP 89/51; PULSE 59; RESP 19; O2SAT 97
[2023-11-06] MEDS: sodium chloride 0.9% 1,000 ML 999 ML IV (19:21)
[2023-11-06 19:33] LABS: Troponin 5 1HR Delta 0.00001 ABS# (0-10)
[2023-11-06 21:45] VITALS: BP 112/59; PULSE 59; RESP 19; TEMP 36.5; O2SAT 97
== END 2023-11-06 21:46 | disposition home or self-care (01) ==
PROVIDERS: Emergency Provider Emergency Medicine; PCP Nurse Practitioner Family
DX: I49.3 Ventricular premature depolarization (principal); R07.9 Chest pain, unspecified; Z11.52 Encounter for screening for COVID-19; Z72.0 Tobacco use
CPT/HCPCS: 71045; 80053; 81001; 83735; 83880; 84443; 84484; 85025; 86140; 87426; 87804; 93005; 99285; J7030